=== PATIENT | male | born 1930 | race Caucasian/White ===

== ENCOUNTER 2016-06-20 11:28 | Inpatient (IN) | payer BC ==
--- NOTE | ~2016-06-20 | DS ---
Discharge Summary [facility] [address] [place]. [address] NAME: STANISLAW MEANS : 32 STATUS : DIS IN PAT#: [id number] AGE: 86 ADM/REG DATE : 06/20/16 MR#: [id number] REPORT SERV DATE: 06/29/16 DICTATED BY: ANAND ZAMORA DATE: 06/28/16 REPORT STATUS : Draft TRANSCRIBED BY: MODL DATE: 06/28/16 ADMISSION DATE: 06/20/2016 DISCHARGE DATE: 06/28/2016 PROCEDURES DONE: 1. 06/21/2016, transthoracic echo showing overall left ventricular function moderately reduced visually at 40% similar to 07/03/2015. Right ventricular systolic function moderately impaired which is new. Left atrial dilatation which has progressed, mitral regurgitation. 2. 06/24/2016 chest x-ray: Interval placement of right upper extremity SVC. 3. 06/22/2016, NIHARIKA: Impression: Moderately decreased left ventricular ejection fraction 35% to 40%. Mild mitral regurgitation. Aortic sclerosis. No vegetation seen. Biatrial enlargement. AICD leads well visualized without vegetations. CONSULT: 1. Cardiology for NIHARIKA. 2. ID with Dr. Marrero. REASON FOR ADMISSION: Positive blood cultures. HISTORY OF HOSPITAL STAY: An 86-year-old white male with past medical history of COPD, CHF with systolic dysfunction, EF 35% to 40%, hypertension, hyperlipidemia, diabetes, peripheral vascular disease, hypothyroidism, dementia, tobacco abuse, presenting with positive blood cultures. The patient was recently discharged on 06/19/2016 for COPD exacerbation. However, the patient was readmitted due to positive blood cultures. Unfortunately, for the patient, the positive blood culture showed positive MSSA on another set of two blood cultures. Since the patient is definitely having bacteremia, Dr. Marrero was consulted for Infectious Disease. The source of the bacteremia was difficult to identify. The patient underwent NIHARIKA, showed no vegetations. Nonetheless, Infectious Disease wanted to treat the patient for approximately six weeks of antibiotics. The patient will continue Ancef until 07/20/2016. DISPOSITION: The patient is feeling fine. No complaints. ACTIVITIES: As tolerated. DIET: Diabetic. INSTRUCTIONS UPON DISCHARGE: 1. The patient to followup with ID within two weeks' time. 2. The patient to followup with primary care physician within two weeks' time. 3. The patient advised to quit smoking. Hence continuing the nicotine patch. MEDICATION UPON DISCHARGE: 1. Aspirin 81 mg daily. Discharge Summary [address] [address] NAME: STANISLAW MEANS : 32 STATUS : DIS IN PAT#: [id number] AGE: 86 ADM/REG DATE : 06/20/16 MR#: [id number] REPORT SERV DATE: 06/29/16 DICTATED BY: ANAND ZAMORA DATE: 06/28/16 REPORT STATUS : Draft TRANSCRIBED BY: MANUEL DATE: 06/28/16 2. Lipitor 40 mg p.o. daily. 3. Coreg 3.125 mg p.o. b.i.d. 4. Ancef 2 g IV q.8 hours. 5. Plavix 75 mg daily. 6. Amaryl 2 mg p.o. b.i.d. 7. NovoLog sliding scale level 2. Check blood sugar a.c. and h.s. 8. Levothyroxine 75 mcg p.o. daily. 9. Multiple multivitamin one tab daily. 10.Habitrol 14 mg topical daily. 11.Nystatin powder t.i.d. 12.Potassium 20 mEq daily. 13.Aldactone 25 mg daily. 14.Demadex 10 mg p.o. daily. 15.ProAir two puffs p.r.n. DIAGNOSES UPON DISCHARGE: 1. Bacteremia secondary to methicillin-sensitive staphylococcus aureus, unknown etiology. 2. Chronic obstructive pulmonary disease. 3. Chronic respiratory failure secondary to chronic obstructive pulmonary disease. 4. Diabetes type 2. 5. Congestive heart failure, systolic dysfunction. Ejection fraction of 35% to 40%. 6. Dementia. 7. Hypertension. 8. Hypothyroid. 9. Peripheral vascular disease. 10.Tobacco abuse. CJ/MANUEL Anand Zamora MD / [id number] CC: MD VAISHALI Rodríguez SUSAN R.
--- NOTE | ~2016-06-20 | HP ---
History And Physical [place] [id number] [facility] [place]. [address] NAME: STANISLAW MEANS : 32 STATUS : ADM IN PAT#: [id number] AGE: 86 ADM/REG DATE : 06/20/16 MR#: [id number] REPORT SERV DATE: 06/20/16 DICTATED BY: FAVIO TAN DATE: 06/20/16 REPORT STATUS : Draft TRANSCRIBED BY: MODL DATE: 06/20/16 DATE OF ADMISSION: 06/20/2016 CHIEF COMPLAINT: Positive blood cultures. HISTORY OF PRESENT ILLNESS: This is an 86-year-old gentleman who was just discharged from the hospital yesterday after he was treated for COPD exacerbation, now presenting with a Staph aureus bacteremia. The patient was admitted by myself on Monday for overnight observation for COPD exacerbation. The patient had uneventful hospital overnight stay and he was subsequently discharged home just yesterday. While patient was down in the ER on the day of admission, blood culture was ordered on the patient. The patient, at that time, had normal white blood cell count and afebrile with no obvious signs and symptoms of infection or sepsis. For some reason, only one set of blood culture was ordered. On the second day of the hospital stay, patient remained afebrile and the patient's white blood cell count did increase to 11.2, but that was with IV steroid therapy for his COPD exacerbation. The patient clinically had improved and he did not show any signs and symptoms of ongoing infection or sepsis and thus patient was discharged home with close outpatient followup instructions. This morning, I was actually paged regarding a positive blood culture that resulted on him. It was positive for Staph aureus. I thus called the patient and asked him to come back to the hospital for further workup. The patient had uneventful night at home, and the patient continues to feel at his baseline. REVIEW OF SYSTEMS: The patient denies any fevers or chills. Also, 14-point review of systems reviewed and negative other than mentioned above. MEDICATIONS: The list is still pending at this time. ALLERGIES: NKDA. PAST MEDICAL HISTORY, SURGICAL HISTORY, FAMILY HISTORY, AND SOCIAL HISTORY, PLEASE REFER TO MY OWN H AND P OF FROM COUPLE OF DAYS AGO. THERE WERE NO ACUTE CHANGES. PHYSICAL EXAMINATION: VITAL SIGNS: Temperature 97.4, blood pressure 98/58, pulse 80, respiratory rate is 18, saturating 98% on room air. NEUROLOGIC: The patient is alert and oriented x3. No focal neurologic deficits. GENERAL: The patient is awake, does not appear to be in acute distress, and he is cooperative. NECK: No JVD. No lymphadenopathy. Normal thyroid. CHEST: No midline sternotomy scar and no tenderness to palpation. The patient's pacemaker and defibrillator site has no redness or surrounding fluctuance. It is nontender to palpation and there was no signs and symptoms of infection or abscess. LUNGS: Clear to auscultation bilaterally with scattered wheezes. Fairly normal respiratory effort on 2 L of oxygen per nasal cannula, which is his home dose. CARDIOVASCULAR: Regular rate and rhythm with no murmurs, rubs, or gallops, and PMI is History And Physical [address] [address] NAME: STANISLAW MEANS : 32 STATUS : ADM IN [facility]#: [id number] AGE: 86 ADM/REG DATE : 06/20/16 MR#: [id number] REPORT SERV DATE: 06/20/16 DICTATED BY: FAVIO TAN DATE: 06/20/16 REPORT STATUS : Draft TRANSCRIBED BY: MANUEL DATE: 06/20/16 nondisplaced. ABDOMEN: Nontender with active bowel sounds and no organomegaly. EXTREMITIES: No edema. Normal distal pulses. No calf tenderness. SKIN: Clean, dry, warm, and intact. LABORATORY DATA: Sodium is 137, potassium 3.8, chloride 102, BUN 20, creatinine 1.17, glucose 253, and these are labs from yesterday. CBC: White blood cell count is 11.2, hemoglobin 14.3, platelets 108. ASSESSMENT: This is an 86-year-old gentleman with history of systolic congestive heart failure with pacemaker and AICD as well as chronic obstructive pulmonary disease presenting with a Staph aureus bacteremia. 1. Staph aureus bacteremia, source is unclear. 2. Baseline systolic congestive heart failure with ejection fraction of 35%. The patient has a pacemaker and an AICD. The patient follows with Dr. Henry. 3. End-stage chronic obstructive pulmonary disease with home oxygen at 2 to 2.5 L continuously. The patient is still being treated for chronic obstructive pulmonary disease exacerbation. 4. Chronic hypoxic respiratory failure. 5. Continued smoking. 6. Hypertension. 7. Diabetes type 2. 8. Peripheral vascular disease. 9. Dementia. 10.Gastroesophageal reflux disease. 11.Hypothyroidism. PLAN: My plan is to admit the patient under telemetry monitoring. First and foremost, I will repeat blood cultures x2. The patient will not be started on any antibiotics for now as the patient does not show any acute signs and symptoms of infection or sepsis. I have discussed the case with Dr. Marerro of Infectious Disease who will see the patient also and also go ahead and check an echocardiogram. In the meantime, I will continue to treat for his COPD exacerbation with oxygen support and bronchodilator therapies. The patient will continue to receive steroid taper therapy. Otherwise, for the rest of stable past medical conditions including diabetes, hypertension, peripheral vascular disease, I will continue home medications. Standard DVT prophylaxis. The patient is DNR at this time. ABBI/MANUEL Favio Tan MD / [id number] CC: History And Physical [address] [address] NAME: STANISLAW MEANS : 32 STATUS : ADM IN [facility]#: [id number] AGE: 86 ADM/REG DATE : 06/20/16 MR#: [id number] REPORT SERV DATE: 06/20/16 DICTATED BY: FAVIO TAN DATE: 06/20/16 REPORT STATUS : Draft TRANSCRIBED BY: MODL DATE: 06/20/16 MD VAISHALI Pruett SUSAN R. William Blalock III, M.D., F.A.C.C.
--- NOTE | ~2016-06-20 | CN ---
Consultation Report [facility] [address] [facility] [place]. [address] NAME: STANISLAW MEANS : 32 STATUS : ADM IN PAT#: [id number] AGE: 86 ADM/REG DATE : 06/20/16 MR#: [id number] REPORT SERV DATE: 06/20/16 DICTATED BY: DEE MARRERO DATE: 06/20/16 REPORT STATUS : Draft TRANSCRIBED BY: MODL DATE: 06/20/16 INFECTIOUS DISEASE CONSULTATION DATE OF CONSULTATION: 06/20/2016 REASON FOR CONSULTATION: Positive blood culture. HISTORY OF PRESENT ILLNESS: This is an 86-year-old man with past medical history notable for COPD and congestive heart failure along with hypertension, diabetes, and coronary artery disease. He was admitted to the hospital on 06/18/2016 after presenting to the ER with worsening shortness of breath. The patient himself is a somewhat poor historian and says he always has shortness of breath, but perhaps this had worsened recently. The patient states, he also always has a chronic cough and that has not changed much. The patient states, he thinks some mild episodic fevers, but again is quite vague on the matter. On presentation to the emergency department, he did have a temperature of 99.6, but a white blood cell count of 8500 and a negative chest x-ray. He was felt to have a probable COPD exacerbation and was given Solu-Medrol along with azithromycin. The patient was discharged yesterday to complete a Z-Chato and Medrol Dosepak. This morning, the one set of blood cultures drawn on 06/18/2016 returned positive for what has been presumptively identified as oxacillin- sensitive Staph aureus. The patient was called back for admission. He does not have any complaints to me right now. He denies any shaking chills. Denies any skin or soft tissue infections recently. Denies any problems with his pacemaker/ICD. PAST MEDICAL HISTORY: In addition to the above is notable for the congestive heart failure as mentioned with ejection fraction around 34%. He also has hyperlipidemia, hypertension, dementia, hypothyroidism. There is a history of lower extremity cellulitis along with gastroesophageal reflux and colon polyps. He had a coronary artery bypass surgery in 2002. ALLERGIES: NONE. DISCHARGE MEDICATIONS: The patient's discharge medications in addition to the Medrol Dosepak and Z-Chato included his regular outpatient medications which are albuterol inhaler p.r.n., aspirin, Lipitor, Coreg, Plavix, Amaryl, Synthroid, multivitamin, potassium chloride, Aldactone, Demadex. SOCIAL HISTORY: Long-term smoker and continues to smoke. Nondrinker. Lives with one of his daughters. FAMILY HISTORY: Notable for congestive heart failure. REVIEW OF SYSTEMS: He denies any chest pain, nausea, vomiting, diarrhea, genitourinary symptoms. He has dentures. Consultation Report [place] [address] [place]. [address] NAME: STANISLAW MEANS : 32 STATUS : ADM IN PAT#: [id number] AGE: 86 ADM/REG DATE : 06/20/16 MR#: [id number] REPORT SERV DATE: 06/20/16 DICTATED BY: DEE MARRERO DATE: 06/20/16 REPORT STATUS : Draft TRANSCRIBED BY: MANUEL DATE: 06/20/16 PHYSICAL EXAMINATION: VITAL SIGNS: The patient weighs 69 kg. Pulse is 84, respiratory rate 18, blood pressure is not yet been posted on [facility]. GENERAL: He is sitting in a chair. No acute distress at all. HEAD AND NECK: Exam shows a clear oral cavity. Supple neck. No adenopathy. LUNGS: Somewhat diminished breath sounds throughout, but no crackles and no wheezes. CARDIAC: Somewhat distant heart sounds. Regular rate and rhythm. Normal S1, S2. No murmur, gallop, or rub. CHEST: Exam shows the AICD in the left upper chest without overlying signs of inflammation. ABDOMEN: Soft and nontender. EXTREMITIES: He has scattered ecchymoses on his arms. The patient has somewhat cool feet. No peripheral stigmata of endocarditis. No evidence of cellulitis. No evidence of inflammatory arthritis. LABORATORY STUDIES: White blood cell count today 7.5, hemoglobin 14.1, platelets 101. He seems to have somewhat chronic borderline thrombocytopenia. Creatinine 1.19, lactate 1.2. Procalcitonin 0.49. His blood gas on 06/18/2016 showed a pH of 7.46, pCO2 of 34, PO2 of 92 on 32%. 06/18/2016 urinalysis is negative. 06/18/2016 blood cultures as mentioned. Chest x-rays reviewed and showed no signs of pneumonia. On 06/18/2016 echocardiogram is pending. IMPRESSION: Positive blood culture from one set drawn on 06/18/2016 for presumptive oxacillin-sensitive Staph aureus. The significance of this is unclear. I do not see obvious symptoms, signs, or source of a true Methicillin-resistant Staphylococcus aureus septicemia. He did have a low-grade a borderline fever of 99.6 on presentation to the emergency department on 06/18/2016, but no fever since then. His white blood cell count is normal. His physical exam is unimpressive and he is nontoxic in appearance. His procalcitonin is 0.49. Certainly, this one positive blood culture could be a contaminant. PLAN: 1. For now, I would hold antibiotics. 2. Repeat blood cultures drawn today, although these are after the azithromycin that he received on 06/18/2016 and 06/19/2016. 3. Await echocardiogram report. 4. Reassess in the morning. NICOLE/MANUEL Dee Marrero M.D. / [id number] CC: Consultation Report [address] [place]. [address] NAME: MIGUELANGELSTANISLAW MARCUS : 32 STATUS : ADM IN [facility]#: [id number] AGE: 86 ADM/REG DATE : 06/20/16 MR#: [id number] REPORT SERV DATE: 06/20/16 DICTATED BY: DEE MARRERO DATE: 06/20/16 REPORT STATUS : Draft TRANSCRIBED BY: MODCarmen DATE: 06/20/16 MD Marifer Pruett
--- NOTE | ~2016-06-20 | TEE ---
Transesophageal Echocardiogram [facility] [address] [facility] [place]. [address] NAME: STANISLAW MEANS : 32 STATUS : ADM IN PAT#: [id number] AGE: 86 ADM/REG DATE : 06/20/16 MR#: [id number] REPORT SERV DATE: 06/22/16 DICTATED BY: DATE: REPORT STATUS : Draft TRANSCRIBED BY: MODL DATE: 06/22/16 CHIEF COMPLAINT/REASON FOR STUDY: Bacteremia. Written informed consent obtained. Please see chart for documentation. PROCEDURE: With the assistance of my Anesthesia colleagues, Mr. Means was sedated for the procedure. The transesophageal probe was placed with one attempt. There were no complications. Transesophageal echocardiogram performed. 2D, Doppler, color flow, and 3D imaging performed. Following completion of the procedure, the transesophageal probe was withdrawn and the patient recovered. ECHOCARDIOGRAPHIC FINDINGS: 1. The left ventricular systolic function was moderately decreased with a visually estimated ejection fraction between 35% and 40%. 2. The aortic valve was trileaflet and sclerotic. There were small fibrinous linear echo densities on the aortic valve tips that are consistent with Lambl excrescence. There was no evidence of aortic valve insufficiency. 3. The mitral and tricuspid valves were well visualized. They open normally. There was mild evidence of mitral valve regurgitation. There was trivial color flow evidence of tricuspid valve regurgitation. There was no evidence of vegetations visualized on the mitral or tricuspid valve leaflets. 4. The right ventricle appeared dilated with mildly decreased systolic function. Linear echo densities in the right ventricle consistent with prior AICD or pacemaker lead placement. These were visualized without vegetation. 5. There was biatrial dilatation present. No evidence of left atrial or left atrial appendage thrombus. No evidence of right atrial thrombus present. Linear echo densities within the right atrium were consistent with a prior pacer, AICD placement. There was no evidence of lead vegetations. There was a linear echodensity at the junction of the atria and inferior vena cava that is likely consistent with the eustachian valve versus Chiari network. 6. There was no evidence of significant pericardial effusion. 7. The pulmonary valve was well visualized. There were no evidence of pulmonary valvular vegetations. There was mild color flow evidence of pulmonary valvular regurgitation. 8. The aorta was well visualized. There was severe atherosclerotic plaquing of the aorta noted. IMPRESSION: 1. Moderately decreased left ventricular systolic function with a visually estimated ejection fraction of 35% to 40%. 2. Biatrial dilatation. 3. Aortic sclerosis with Lambl excrescence visualized. There was no significant evidence of aortic valvular vegetations. 4. No evidence of mitral, tricuspid, or pulmonary valvular vegetations. 5. No evidence of vegetations on the AICD leaflets. Transesophageal Echocardiogram [address] [address] NAME: STANISLAW MEANS MARCUS : 32 STATUS : ADM IN [facility]#: [id number] AGE: 86 ADM/REG DATE : 06/20/16 MR#: [id number] REPORT SERV DATE: 06/22/16 DICTATED BY: DATE: REPORT STATUS : Draft TRANSCRIBED BY: MANUEL DATE: 06/22/16 [facility]/MANUEL Brianne Hanson M.D. / [id number] CC: MD SELAM Rodríguez
[~2016-06-20 11:28] MED LIST: *UNABLE1; ADVAIR250 INH; AMARYL2 PO; ASAB PO; CELEXA20 PO; COREG3 PO; DEMA10T PO; DIGITEK0.125 MG PO; DURICEF PO; FENESIN IR400 MG PO; HALF81 PO; IMDUR30 PO; KLOR-CON 1010 MEQ PO; KLOR-CON M2020 MEQ PO; L40 PO; LEVOTHYROXIN50 MCG PO; LEVOTHYROXIN75 MCG PO; LIPITOR20 PO; LIPITOR40 PO; LOP25 PO; LOTE5 PO; MAGOX4 PO; MULTIVITAMI1 PO; P20 PO; PERI-COLACE1 TAB PO; PLAVIX PO; PROAIR HFA INH; SPIRIVA INH; SPIRO25 PO; SYN075 PO; THERGRANM PO; ZITHROMAX500 MG PO
[2016-06-20 13:30] LABS: BASOPHILS 0 %; EOSINOPHILS 0 %; HEMATOCRIT 41.9 % (40.0-51.0); HEMOGLOBIN 14.1 g/dL (13.6-17.8); IMMATURE GRANULOCYTES 0.1 %; IMMATURE GRANULOCYTES ABSOLUTE 0.01 10/3/uL (0.0-0.11); LYMPHOCYTES 3.2 %; LYMPHOCYTES ABSOLUTE 0.24 10/3/uL (0.67-4.30); MEAN CORPUS HGB CONC 33.7 g/dL (32.0-36.0); MEAN CORPUSCULAR HEMOGLOB 28.7 pg (26.0-34.0); MEAN CORPUSCULAR VOLUME 85.2 fL (80-100); MEAN PLATELET VOLUME 10.8 fL (9.2-13.0); MONOCYTES 7.8 %; MONOCYTES ABSOLUTE 0.58 10/3/uL (0.21-1.20); NEUTROPHILS 88.9 %; NEUTROPHILS ABSOLUTE 6.63 10/3/uL (2.02-8.40); PLATELET COUNT 101 10/3/uL (150-400); RBC DISTRIBUTION WIDTH 17.1 % (12.0-16.0); RED CELL COUNT 4.92 10/6/uL (4.7-6.1); WHITE BLOOD CELLS 7.5 10/3/uL (4.5-10.5)
[2016-06-20 13:33] LABS: MANUAL DIFF NO %
[2016-06-20 13:37] LABS: CALCIUM, SERUM 9.3 MG/DL (8.5-10.4); CHLORIDE, SERUM 98 MMOL/L (96-112); CREATININE 1.19 MG/DL (0.70-1.30); GFR AFRICAN AMERICAN 65 ML/MIN (>=60); GFR NON AFRICAN AMERICAN 56 ML/MIN (>=60); POTASSIUM, SERUM 4.1 MMOL/L (3.5-5.3); SODIUM, SERUM 133 MMOL/L (135-148)
[2016-06-20 13:38] LABS: BUN (BLOOD UREA NITROGEN) 27 MG/DL (6-23); CO2 (CARBON DIOXIDE) 32 MMOL/L (24-34); GLUCOSE, SERUM 187 MG/DL (60-99)
[2016-06-21 05:14] LABS: BASOPHILS 0.1 %; BASOPHILS ABSOLUTE 0.01 10/3/uL (0.0-0.16); EOSINOPHILS 0.1 %; EOSINOPHILS ABSOLUTE 0.01 10/3/uL (0.0-0.53); HEMATOCRIT 39.7 % (40.0-51.0); HEMOGLOBIN 13.3 g/dL (13.6-17.8); IMMATURE GRANULOCYTES 0.4 %; IMMATURE GRANULOCYTES ABSOLUTE 0.03 10/3/uL (0.0-0.11); LYMPHOCYTES 9.6 %; LYMPHOCYTES ABSOLUTE 0.69 10/3/uL (0.67-4.30); MEAN CORPUS HGB CONC 33.5 g/dL (32.0-36.0); MEAN CORPUSCULAR HEMOGLOB 28.4 pg (26.0-34.0); MEAN CORPUSCULAR VOLUME 84.6 fL (80-100); MEAN PLATELET VOLUME 10.7 fL (9.2-13.0); MONOCYTES 13.6 %; MONOCYTES ABSOLUTE 0.98 10/3/uL (0.21-1.20); NEUTROPHILS 76.2 %; NEUTROPHILS ABSOLUTE 5.48 10/3/uL (2.02-8.40); PLATELET COUNT 99 10/3/uL (150-400); RED CELL COUNT 4.69 10/6/uL (4.7-6.1); WHITE BLOOD CELLS 7.2 10/3/uL (4.5-10.5)
[2016-06-21 05:15] LABS: MANUAL DIFF NO %
[2016-06-21 05:27] LABS: BUN (BLOOD UREA NITROGEN) 30 MG/DL (6-23); CALCIUM, SERUM 9.5 MG/DL (8.5-10.4); CHLORIDE, SERUM 99 MMOL/L (96-112); CO2 (CARBON DIOXIDE) 32 MMOL/L (24-34); CREATININE 1.05 MG/DL (0.70-1.30); GFR AFRICAN AMERICAN 75 ML/MIN (>=60); GFR NON AFRICAN AMERICAN 65 ML/MIN (>=60); GLUCOSE, SERUM 160 MG/DL (60-99); POTASSIUM, SERUM 4.1 MMOL/L (3.5-5.3); SODIUM, SERUM 134 MMOL/L (135-148)
[2016-06-23 06:47] LABS: BASOPHILS 0.1 %; BASOPHILS ABSOLUTE 0.01 10/3/uL (0.0-0.16); CALCIUM, SERUM 9.4 MG/DL (8.5-10.4); CHLORIDE, SERUM 104 MMOL/L (96-112); CREATININE 0.91 MG/DL (0.70-1.30); EOSINOPHILS 0 %; GFR AFRICAN AMERICAN 89 ML/MIN (>=60); GFR NON AFRICAN AMERICAN 77 ML/MIN (>=60); GLUCOSE, SERUM 148 MG/DL (60-99); HEMOGLOBIN 13.2 g/dL (13.6-17.8); IMMATURE GRANULOCYTES 0.5 %; IMMATURE GRANULOCYTES ABSOLUTE 0.05 10/3/uL (0.0-0.11); LYMPHOCYTES 11.9 %; LYMPHOCYTES ABSOLUTE 1.32 10/3/uL (0.67-4.30); MEAN CORPUS HGB CONC 34.7 g/dL (32.0-36.0); MEAN CORPUSCULAR HEMOGLOB 28.4 pg (26.0-34.0); MEAN PLATELET VOLUME 10.1 fL (9.2-13.0); MONOCYTES 9.1 %; MONOCYTES ABSOLUTE 1.01 10/3/uL (0.21-1.20); NEUTROPHILS 78.4 %; NEUTROPHILS ABSOLUTE 8.72 10/3/uL (2.02-8.40); PHOSPHORUS, SERUM 2.3 MG/DL (2.5-4.5); PLATELET COUNT 124 10/3/uL (150-400); POTASSIUM, SERUM 4.5 MMOL/L (3.5-5.3); RBC DISTRIBUTION WIDTH 17.5 % (12.0-16.0); RED CELL COUNT 4.64 10/6/uL (4.7-6.1); SODIUM, SERUM 138 MMOL/L (135-148)
[2016-06-23 06:48] LABS: ALBUMIN 2.8 G/DL (3.5-5.0); BUN (BLOOD UREA NITROGEN) 26 MG/DL (6-23); CO2 (CARBON DIOXIDE) 27 MMOL/L (24-34); MANUAL DIFF NO %; MEAN CORPUSCULAR VOLUME 81.9 fL (80-100); WHITE BLOOD CELLS 11.1 10/3/uL (4.5-10.5)
[2016-06-24 06:11] LABS: BASOPHILS 0.1 %; BASOPHILS ABSOLUTE 0.01 10/3/uL (0.0-0.16); EOSINOPHILS 0.4 %; EOSINOPHILS ABSOLUTE 0.05 10/3/uL (0.0-0.53); HEMOGLOBIN 13.8 g/dL (13.6-17.8); IMMATURE GRANULOCYTES 0.6 %; IMMATURE GRANULOCYTES ABSOLUTE 0.08 10/3/uL (0.0-0.11); LYMPHOCYTES 11.9 %; LYMPHOCYTES ABSOLUTE 1.52 10/3/uL (0.67-4.30); MEAN CORPUS HGB CONC 34.5 g/dL (32.0-36.0); MEAN CORPUSCULAR HEMOGLOB 28.5 pg (26.0-34.0); MEAN CORPUSCULAR VOLUME 82.5 fL (80-100); MEAN PLATELET VOLUME 9.9 fL (9.2-13.0); MONOCYTES ABSOLUTE 1.15 10/3/uL (0.21-1.20); NEUTROPHILS ABSOLUTE 9.92 10/3/uL (2.02-8.40); PLATELET COUNT 156 10/3/uL (150-400); RBC DISTRIBUTION WIDTH 17.4 % (12.0-16.0); RED CELL COUNT 4.85 10/6/uL (4.7-6.1); WHITE BLOOD CELLS 12.7 10/3/uL (4.5-10.5)
[2016-06-24 06:12] LABS: MANUAL DIFF NO %
[2016-06-24 06:27] LABS: ALBUMIN 2.9 G/DL (3.5-5.0); BUN (BLOOD UREA NITROGEN) 26 MG/DL (6-23); CHLORIDE, SERUM 104 MMOL/L (96-112); CO2 (CARBON DIOXIDE) 31 MMOL/L (24-34); CREATININE 1.11 MG/DL (0.70-1.30); GFR AFRICAN AMERICAN 70 ML/MIN (>=60); GFR NON AFRICAN AMERICAN 61 ML/MIN (>=60); GLUCOSE, SERUM 64 MG/DL (60-99); PHOSPHORUS, SERUM 2.3 MG/DL (2.5-4.5); SODIUM, SERUM 140 MMOL/L (135-148)
[2016-06-25 06:10] LABS: BASOPHILS 0 %; EOSINOPHILS 1.2 %; EOSINOPHILS ABSOLUTE 0.09 10/3/uL (0.0-0.53); HEMATOCRIT 40.2 % (40.0-51.0); HEMOGLOBIN 13.5 g/dL (13.6-17.8); IMMATURE GRANULOCYTES 0.5 %; IMMATURE GRANULOCYTES ABSOLUTE 0.04 10/3/uL (0.0-0.11); LYMPHOCYTES 22.5 %; LYMPHOCYTES ABSOLUTE 1.72 10/3/uL (0.67-4.30); MEAN CORPUS HGB CONC 33.6 g/dL (32.0-36.0); MEAN CORPUSCULAR HEMOGLOB 28.1 pg (26.0-34.0); MEAN CORPUSCULAR VOLUME 83.8 fL (80-100); MEAN PLATELET VOLUME 10.3 fL (9.2-13.0); MONOCYTES 10.2 %; MONOCYTES ABSOLUTE 0.78 10/3/uL (0.21-1.20); NEUTROPHILS 65.6 %; PLATELET COUNT 170 10/3/uL (150-400); RBC DISTRIBUTION WIDTH 17.3 % (12.0-16.0)
[2016-06-25 06:11] LABS: MANUAL DIFF NO %; WHITE BLOOD CELLS 7.6 10/3/uL (4.5-10.5)
[2016-06-25 06:18] LABS: A/G RATIO 0.8 (0.7-1.9); ALBUMIN 2.8 G/DL (3.5-5.0); ALKALINE PHOSPHATASE 107 U/L (45-117); CALCIUM, SERUM 8.8 MG/DL (8.5-10.4); CHLORIDE, SERUM 102 MMOL/L (96-112); CO2 (CARBON DIOXIDE) 33 MMOL/L (24-34); CREATININE 0.94 MG/DL (0.70-1.30); GFR AFRICAN AMERICAN 86 ML/MIN (>=60); GFR NON AFRICAN AMERICAN 74 ML/MIN (>=60); GLOBULIN 3.6 G/DL (2.5-4.1); GLUCOSE, SERUM 74 MG/DL (60-99); PHOSPHORUS, SERUM 2.3 MG/DL (2.5-4.5); POTASSIUM, SERUM 4.2 MMOL/L (3.5-5.3); SGOT(AST) 41 U/L (5-40); SGPT(ALT) 19 U/L (5-65); SODIUM, SERUM 138 MMOL/L (135-148); TOTAL BILIRUBIN 0.8 MG/DL (0-1.2); TOTAL PROTEIN 6.4 G/DL (6.0-8.5)
[2016-06-25 06:19] LABS: BUN (BLOOD UREA NITROGEN) 22 MG/DL (6-23)
[2016-06-26 05:51] LABS: BASOPHILS 0.1 %; BASOPHILS ABSOLUTE 0.01 10/3/uL (0.0-0.16); EOSINOPHILS 1.9 %; EOSINOPHILS ABSOLUTE 0.14 10/3/uL (0.0-0.53); HEMOGLOBIN 12.8 g/dL (13.6-17.8); IMMATURE GRANULOCYTES 1.7 %; IMMATURE GRANULOCYTES ABSOLUTE 0.13 10/3/uL (0.0-0.11); LYMPHOCYTES 24.2 %; LYMPHOCYTES ABSOLUTE 1.83 10/3/uL (0.67-4.30); MEAN CORPUS HGB CONC 33.7 g/dL (32.0-36.0); MEAN CORPUSCULAR VOLUME 83.2 fL (80-100); MONOCYTES ABSOLUTE 0.83 10/3/uL (0.21-1.20); NEUTROPHILS 61.1 %; NEUTROPHILS ABSOLUTE 4.62 10/3/uL (2.02-8.40); PLATELET COUNT 180 10/3/uL (150-400); RBC DISTRIBUTION WIDTH 17.2 % (12.0-16.0); RED CELL COUNT 4.57 10/6/uL (4.7-6.1); WHITE BLOOD CELLS 7.6 10/3/uL (4.5-10.5)
[2016-06-26 05:57] LABS: ALBUMIN 2.7 G/DL (3.5-5.0); BUN (BLOOD UREA NITROGEN) 18 MG/DL (6-23); CALCIUM, SERUM 8.7 MG/DL (8.5-10.4); CHLORIDE, SERUM 98 MMOL/L (96-112); CO2 (CARBON DIOXIDE) 30 MMOL/L (24-34); CREATININE 0.89 MG/DL (0.70-1.30); GFR AFRICAN AMERICAN 91 ML/MIN (>=60); GFR NON AFRICAN AMERICAN 79 ML/MIN (>=60); GLUCOSE, SERUM 101 MG/DL (60-99); PHOSPHORUS, SERUM 2.5 MG/DL (2.5-4.5); POTASSIUM, SERUM 4.1 MMOL/L (3.5-5.3); SODIUM, SERUM 134 MMOL/L (135-148)
[2016-06-26 06:01] LABS: MANUAL DIFF NO %
[2016-06-27 05:41] LABS: BASOPHILS 0 %; EOSINOPHILS 1.4 %; EOSINOPHILS ABSOLUTE 0.09 10/3/uL (0.0-0.53); HEMATOCRIT 38.1 % (40.0-51.0); HEMOGLOBIN 12.7 g/dL (13.6-17.8); IMMATURE GRANULOCYTES 1.7 %; IMMATURE GRANULOCYTES ABSOLUTE 0.11 10/3/uL (0.0-0.11); LYMPHOCYTES 20.3 %; LYMPHOCYTES ABSOLUTE 1.32 10/3/uL (0.67-4.30); MEAN CORPUS HGB CONC 33.3 g/dL (32.0-36.0); MEAN CORPUSCULAR VOLUME 83.9 fL (80-100); MEAN PLATELET VOLUME 9.5 fL (9.2-13.0); MONOCYTES 7.6 %; MONOCYTES ABSOLUTE 0.49 10/3/uL (0.21-1.20); NEUTROPHILS ABSOLUTE 4.48 10/3/uL (2.02-8.40); PLATELET COUNT 175 10/3/uL (150-400); RBC DISTRIBUTION WIDTH 16.7 % (12.0-16.0); RED CELL COUNT 4.54 10/6/uL (4.7-6.1); WHITE BLOOD CELLS 6.5 10/3/uL (4.5-10.5)
[2016-06-27 05:43] LABS: MANUAL DIFF NO %
[2016-06-27 05:54] LABS: ALBUMIN 2.8 G/DL (3.5-5.0); BUN (BLOOD UREA NITROGEN) 16 MG/DL (6-23); CALCIUM, SERUM 8.9 MG/DL (8.5-10.4); CHLORIDE, SERUM 99 MMOL/L (96-112); CO2 (CARBON DIOXIDE) 33 MMOL/L (24-34); CREATININE 0.85 MG/DL (0.70-1.30); GFR AFRICAN AMERICAN 93 ML/MIN (>=60); GFR NON AFRICAN AMERICAN 80 ML/MIN (>=60); GLUCOSE, SERUM 112 MG/DL (60-99); PHOSPHORUS, SERUM 2.9 MG/DL (2.5-4.5); POTASSIUM, SERUM 3.8 MMOL/L (3.5-5.3); SODIUM, SERUM 137 MMOL/L (135-148)
[2016-06-28 06:48] LABS: BASOPHILS 0 %; EOSINOPHILS 1.3 %; HEMOGLOBIN 11.9 g/dL (13.6-17.8); IMMATURE GRANULOCYTES 0.9 %; IMMATURE GRANULOCYTES ABSOLUTE 0.07 10/3/uL (0.0-0.11); LYMPHOCYTES 15.4 %; LYMPHOCYTES ABSOLUTE 1.22 10/3/uL (0.67-4.30); MEAN CORPUS HGB CONC 33.1 g/dL (32.0-36.0); MEAN CORPUSCULAR HEMOGLOB 27.8 pg (26.0-34.0); MEAN CORPUSCULAR VOLUME 84.1 fL (80-100); MEAN PLATELET VOLUME 9.6 fL (9.2-13.0); MONOCYTES 11.6 %; MONOCYTES ABSOLUTE 0.92 10/3/uL (0.21-1.20); NEUTROPHILS 70.8 %; NEUTROPHILS ABSOLUTE 5.61 10/3/uL (2.02-8.40); PLATELET COUNT 198 10/3/uL (150-400); RBC DISTRIBUTION WIDTH 17.1 % (12.0-16.0); RED CELL COUNT 4.28 10/6/uL (4.7-6.1); WHITE BLOOD CELLS 7.9 10/3/uL (4.5-10.5)
[2016-06-28 06:50] LABS: ALBUMIN 2.7 G/DL (3.5-5.0); BUN (BLOOD UREA NITROGEN) 14 MG/DL (6-23); CALCIUM, SERUM 8.7 MG/DL (8.5-10.4); CHLORIDE, SERUM 100 MMOL/L (96-112); CO2 (CARBON DIOXIDE) 33 MMOL/L (24-34); CREATININE 0.82 MG/DL (0.70-1.30); GFR AFRICAN AMERICAN 94 ML/MIN (>=60); GFR NON AFRICAN AMERICAN 81 ML/MIN (>=60); GLUCOSE, SERUM 134 MG/DL (60-99); PHOSPHORUS, SERUM 2.2 MG/DL (2.5-4.5); SODIUM, SERUM 135 MMOL/L (135-148)
[2016-06-28 06:53] LABS: MANUAL DIFF NO %
== END 2016-06-28 14:45 | DRG 871 ==
LOC: 7NO 11:28
PROVIDERS: Hospitalist; Internal Medicine
PROC: 02HV33Z Insertion of Infusion Device into Superior Vena Cava, Percutaneous Approach (ICD-10-PCS; principal; 2016-06-24)
DX: A41.01 Sepsis due to Methicillin susceptible Staphylococcus aureus (principal); J96.21 Acute and chronic respiratory failure with hypoxia; F03.90 Unspecified dementia, unspecified severity, without behavioral disturbance, psychotic disturbance, mood disturbance, and anxiety; I50.22 Chronic systolic (congestive) heart failure; J44.1 Chronic obstructive pulmonary disease with (acute) exacerbation; I11.0 Hypertensive heart disease with heart failure; E11.9 Type 2 diabetes mellitus without complications; I73.9 Peripheral vascular disease, unspecified; E78.5 Hyperlipidemia, unspecified; E03.9 Hypothyroidism, unspecified; K21.9 Gastro-esophageal reflux disease without esophagitis; F17.210 Nicotine dependence, cigarettes, uncomplicated; Z95.810 Presence of automatic (implantable) cardiac defibrillator; Z99.81 Dependence on supplemental oxygen; Z95.1 Presence of aortocoronary bypass graft
CPT/HCPCS: 36569; 36600; 71020; 76376; 80048; 80053; 80069; 81001; 82805; 82962; 83605; 83735; 83880; 84100; 84145; 84484; 85025; 85610; 85730; 87040; 87077; 87150; 87186; 93005; 93306; 93312; 93320; 93325; 94640; 96372; 96374; 96375; 96376; 97110-GP; 97116-GP; 97162-GP; 97165-GO; 99285; A9270-GY; C1751; G0378; J0456; J0690; J2930